=== PATIENT | female | born 1965 | race Caucasian/White ===

== ENCOUNTER 2017-12-29 14:28 | Emergency (ER) | payer MEDICAID ==
[~2017-12-29] VITALS: Ht 160 cm; Wt 63.5 kg
[2017-12-29 14:28] VITALS: BP_SYST 147
[2017-12-29] MEDS ORDERED: DIPH-TET-PERTUS Vaccine 0.5 ML VIAL (ADACEL) I.M. ONE (15:30)
[2017-12-29 15:40] VITALS: BP_SYST 147
[2017-12-30] MEDS ORDERED: BACITRACIN/POLYMYXIN B SULFATE 30 GM TOPICAL OINT. TP SCH (09:00)
== END 2017-12-29 15:40 | disposition home or self-care (01) ==
LOC: SED 14:28
DX: S61.411A Laceration without foreign body of right hand, initial encounter (principal); Z88.5 Allergy status to narcotic agent; W45.8XXA Other foreign body or object entering through skin, initial encounter; Y93.89 Activity, other specified; Y92.89 Other specified places as the place of occurrence of the external cause; Y99.8 Other external cause status
CPT/HCPCS: 90715; 99283